=== PATIENT | male | born 1945 | race African-American/Black ===

== ENCOUNTER 2019-11-27 11:05 | Inpatient (IN) ==
[2019-11-27 16:17] LABS: BASO# 0.03 X1000 (0.0-0.2); BASO% 0.4 % (0.0-0.8); EOS# 0.83 X1000 (0.0-0.7); EOS% 11.1 % (0.0-10.0); HEMATOCRIT 32.8 % (42.0-52.0); HEMOGLOBIN 10.1 g/dL (14.0-18.0); IMM GRAN# 0.06 X1000 (0.0-0.04); IMM GRAN% 0.8 % (0.0-0.5); LYMPH% 22.6 % (20.5-51.1); MCHC 30.8 g/dL (33-37); MCV 78.1 FL (81-99); MONO# 0.56 X1000 (0.11-0.59); MONO% 7.5 % (1.7-9.3); MPV 7.9 FL (7.4-10.4); NEUT# 4.33 X1000 (1.4-6.5); NEUT% 57.6 % (42.2-75.2); PLT 279 X1000 (130-400); RDW 17.1 % (11.5-14.5); WBC 7.51 X1000 (4.8-10.8)
--- NOTE | 2019-11-27 16:17 | Diag Imaging Result Doc PS360 ---
EXAM: CHEST-2 VIEWS HISTORY: LE edema TECHNIQUE: Two views COMPARISON: None. FINDINGS: The lungs are well expanded. The heart is not enlarged. The vessels are not distended. There are no infiltrates. No pleural effusions. IMPRESSION: No pulmonary edema Electronically signed by Ankit Howard 11/27/2019 4:15 PM
--- NOTE | 2019-11-27 16:27 | EKG Report ---
Test Performed on : 11/27/2019 4:03:29 PM Test Reason : CP Blood Pressure : / mmHG Vent. Rate : 081 BPM Atrial Rate : 288 BPM P-R Int : 000 ms QRS Dur : 070 ms QT Int : 392 ms P-R-T Axes : 000 011 041 degrees QTc Int : 455 ms Atrial fibrillation. with premature ventricular or aberrantly conducted complexes. Nonspecific ST and T wave abnormality Abnormal ECG No previous ECGs available Unconfirmed Result
[2019-11-27 16:50] LABS: AGAP 13; ALB/GLOB RATIO 0.5; ALBUMIN 2.7 g/dL (3.5-5.0); ALKALINE PHOSPHATASE 74 U/L (32-122); BUN 19 mg/dL (8-22); CALCIUM 8.7 mg/dL (8.8-10.2); CHLORIDE 98 mmol/L (98-107); COSMO 270; CREATININE 0.9 mg/dL (0.7-1.2); ESTIMATED GFR > 60; GLUCOSE 93 mg/dL (70-104); GOT 24 U/L (10-34); GPT 13 U/L (10-44); MAGNESIUM 2.1 mg/dL (1.5-2.7); POTASSIUM 4.6 mmol/L (3.5-5.1); SODIUM 134 mmol/L (136-145); TCO2 23 mmol/L (25-35); TOTAL BILIRUBIN 0.23 mg/dL (0.20-1.00); TOTAL PROTEIN 8.5 g/dL (6.3-8.3)
[2019-11-27 17:20] LABS: CK INDEX 0.2 (0.0-2.5)
[2019-11-27 17:23] LABS: URINE SOURCE CLEAN CATCH
[2019-11-27 17:33] LABS: BILIRUBIN URINE NEGATIVE (NEGATIVE); BLOOD URINE NEGATIVE (NEGATIVE); COLOR YELLOW; GLUCOSE URINE NEGATIVE (NEGATIVE); KETONE URINE NEGATIVE (NEGATIVE); LEUKOCYTES URINE NEGATIVE (NEGATIVE); NITRITE URINE NEGATIVE (NEGATIVE); PROTEIN URINE TRACE mg/dL (NEGATIVE); TURBIDITY URINE CLEAR (CLEAR); UROBILINOGEN URINE NORMAL (NORMAL)
[2019-11-27 17:34] LABS: UR EPITHELIAL CELLS <10 /HPF (<10); URINE BACTERIA NEGATIVE /HPF; URINE RBC <10 /HPF (<10); URINE WBC <10 /HPF (<10)
--- NOTE | 2019-11-27 18:29 | PROVIDER DOCUMENTATION ---
This chart was entered by Jo Valladares Scribe, acting as scribe for Trish Blackmon MD. HPI-General Adult - General Chief Complaint: Fall Stated Complaint: FALL Time Seen by Provider: 11/27/19 14:03 Source: patient Allergies/Adverse Reactions: Patient Allergies Allergy/AdvReac Type Severity Reaction Status Date / Time Penicillins Allergy Severe RASH Verified 11/27/19 16:47 Sulfa (Sulfonamide Allergy Severe RASH Verified 11/27/19 16:46 Antibiotics) Home Medications: Home Medication List Medication Instructions Recorded Confirmed Last Taken Type Cholecalciferol (Vitamin D3) 50,000 unit PO Q7D 11/27/19 11/27/19 11/26/19 History [Replesta] Ferrous Gluconate 324 mg PO DAILY 11/27/19 11/27/19 Unknown History Furosemide 40 mg PO QAM 11/27/19 11/27/19 Unknown History Potassium Chloride 10 meq PO QPM 11/27/19 11/27/19 Unknown History Vit C/Ascorb Sod/Multivit-Min 500 mg PO QPM 11/27/19 11/27/19 Unknown History [Emergen-C 500 mg Chewable Tab] - History of Present Illness -Gen Adult Nature of Presenting Problems: Patient is a 74 year old male who presents with weakness. Family states patient had a fall 1 week ago. Patient denies head injury with fall. Patient reports he slipped out of his chair which caused his fall. History of lymphedema which is followed by the wound clinic in [place]. Location of Pain/Injury: reports: none Quality of Pain: reports: none Severity: reports: mild Onset/Duration: reports: gradual Timing: reports: still present Context/Activities at Onset: reports: light activity Associated Symptoms: reports: weakness Similar Symptoms Previously?: Yes Recently seen or treated by another doctor?: Yes Review of Systems - Adult - REVIEW OF SYSTEMS - ADULT Constitutional: reports: no symptoms reported Eyes: reports: no symptoms reported Ears, Nose, Mouth & Throat: reports: no symptoms reported Cardiovascular: reports: no symptoms reported Respiratory: reports: no symptoms reported Gastrointestinal: reports: no symptoms reported Genitourinary: reports: no symptoms reported Musculoskeletal: reports: see HPI, muscle weakness Integumentary: reports: no symptoms reported Neurological: reports: no symptoms reported Psychiatric: reports: no symptoms reported Endocrine: reports: no symptoms reported Hematologic/Lymphatic: reports: no symptoms reported Allergic/Immunologic: reports: no symptoms reported All Other Systems: Reviewed and Negative Past History - Adult - PAST MEDICAL HISTORY-ADULT Review of Records: reports: Old Records Reviewed, Nursing Assessment Review, Medications Reviewed, Social history reviewed & non-contributory. Major Childhood Illnesses: reports: denies history Cardiovascular: reports: denies history Respiratory: reports: denies history Gastrointestinal: reports: denies history Obstetrical/Gynecological: reports: denies history Genitourinary: reports: denies history Musculoskeletal: reports: denies history Neurological: reports: denies history Psychiatric: reports: denies history Endocrine/Immune: reports: anemia, thyroid disorder Other Conditions: reports: denies history - PRIOR SURGERIES/PROCEDURES Surgical/Procedure History: reports: reviewed, not pertinent - IMMUNIZATION STATUS Childhood Immunizations: See Nurse Assessment Flu Vaccine: See Nurse Assessment - FAMILY HISTORY Family History: reviewed, not pertinent - SOCIAL HISTORY Smoking: denies Substance Use: denies Living Situation: family Physical Exam-General - PHYSICAL EXAM-ADULT Initial Vital Signs Reviewed: Yes - CONSTITUTIONAL General Appearance: alert, no apparent distress. negative: lethargic - HEAD, EARS, NOSE, MOUTH & THROAT HENMT: normocephalic/atraumatic, moist mucous membranes - NECK Neck: non-tender, other (well healed midline scar). negative: limited range of motion - RESPIRATORY Respiratory: chest non-tender, lungs clear, normal breath sounds. negative: crackles - CARDIOVASCULAR Cardiovascular: regular rate, rhythm. negative: tachycardia, systolic murmur - GASTROINTESTINAL (ABDOMEN) Abdominal Exam: normal bowel sounds, non tender, soft. negative: rigid - MUSCULOSKELETAL Extremity: other (bandages present to bilateral lower extremities.) - SKIN Integumentary: normal color, normal turgor, other (malodorous LE with bandages. bandages appear to be clean and dry. wound on leg covered with bandage. (this is new wound from fall 1 week ago. Extreme lymphedema to LE b/l). negative: diaphoresis - NEUROLOGIC Neurologic: grossly normal. negative: aphasia, facial droop - PSYCHIATRIC Psych/Mental Status: normal mood/affect, normal thought content, normal thought process, oriented x 3. negative: anxious Progress - PLAN OF CARE/RESULTS Progress/Plan/Lab Results: Vital Signs - 8 hr 11/27/19 11:22 Temperature 99.0 F Pulse Rate 77 Respiratory Rate 16 Blood Pressure 108/68 O2 Sat by Pulse Oximetry 98 Orders Category Date Time Status Nursing- Obtain EKG ONCE Care 11/27/19 14:27 Active CHEST-2 VIEWS [RAD] Stat Exams 11/27/19 14:27 Ordered CBC WITH ELECTRONIC DIFF [HEME] Stat Lab 11/27/19 14:27 Uncollected CK PROFILE [SP CHEM] Stat Lab 11/27/19 14:27 Ordered COMPREHENSIVE METABOLIC PANEL [CHEM] Stat Lab 11/27/19 14:27 Uncollected MAGNESIUM [CHEM] Stat Lab 11/27/19 14:27 Uncollected TROPONIN T HIGH SENSITIVITY Stat Lab 11/27/19 14:27 Uncollected TSH Stat Lab 11/27/19 14:27 Uncollected URINALYSIS W/POSS RFLX CULT [URINALYSIS] Stat Lab 11/27/19 14:27 Uncollected EKG [EKG] Stat Ther 11/27/19 14:27 Ordered Result Diagrams: 11/27/19 15:49 11/27/19 15:49 - EKG 1 Time of EKG reading by physician:: 16:03 EKG Read and Signed by:: Trish Blackmon EKG Interpretation (*Must complete 3 of following elements*): Abnormal Rate: 81 Rhythm: a fib [place]: normal QRS: normal ST Wave: non-specific ST changes (flattened t waves) Prior EKG Comparison: no prior EKG - XRAY 1 XRAY Study: Chest Impression: See EMR Report ( EXAM: CHEST-2 VIEWS HISTORY: LE edema TECHNIQUE: Two views COMPARISON: None. FINDINGS: The lungs are well expanded. The heart is not enlarged. The vessels are not distended. There are no infiltrates. No pleural effusions. IMPRESSION: No pulmonary edema Elect ronically signed by Ankit Howard 11/27/2019 4:15 PM 11/27/19 1615 Interpreting Physician: Ankit Howard MD Dictated Date/Time: 11/27/19 1614 cc: Trish Blackmon MD; None,PCP) - CONSULTS/PCP/HOSPITALIST Notification #1 *Consult/PCP/Hospitalist*: Spoke with Haley Time Discussed: 18:00 Consult Disposition: Will see in ED Departure - Departure Date of Disposition Decision: 11/27/19 Time of Disposition Decision: 20:09 DIAGNOSIS: Atrial fibrillation, New onset a-fib, Chronic acquired lymphedema Disposition: ADMITTED INPATIENT 09 Certified Medical Emergency: Emergent Condition: Stable Referrals and Follow-Ups: None,PCP [Primary Care Provider] - - Critical Care Note This patient required my direct & personal management of CC.: No Attestation - Physician/ EMILY Attestation The physician spent face to face time with patient:: Yes Advanced Practice Provider documentation review:: Supervising physician onsite and consulted in the evaluation and care of this patient. The physician did have a face to face encounter with the patient. This chart was documented by the indicated scribe, (Jo Valladares Scribe) and accurately reflects the services I performed and decisions made by me, Trish Blackmon MD, as attested by the provider's signature.
[2019-11-27 22:02] LABS: INR 0.94; PROTIME 12.6 Seconds (11.0-16.0); PTT 36.3 Seconds (22.3-41.8)
--- NOTE | 2019-11-27 22:13 | Diag Imaging Result Doc PS360 ---
EXAM: XRAY PELVIS W/HIP 2-3VW RT HISTORY: Fall,right hip pain TECHNIQUE: Two views COMPARISON: None. FINDINGS: No fracture. No dislocation. IMPRESSION: No acute bony injury. Electronically signed by Ankit Howard 11/27/2019 10:11 PM
[2019-11-27 22:33] LABS: CK INDEX 0.2 (0.0-2.5); CK-MB 1.05 ng/mL (0.0-5.0)
[2019-11-27] MEDS ORDERED: ZOFRAN IV PRN (22:35)
[2019-11-27] MEDS ORDERED: TYLENOL PO PRN (22:35)
[2019-11-27] MEDS ORDERED: NS 1,000 ML IV SCH (22:45)
--- NOTE | 2019-11-27 23:21 | EKG Report ---
Test Performed on : 11/27/2019 9:37:38 PM Test Reason : New Onset A-Fib,repeat EKG Blood Pressure : / mmHG Vent. Rate : 075 BPM Atrial Rate : 277 BPM P-R Int : 000 ms QRS Dur : 074 ms QT Int : 346 ms P-R-T Axes : 000 199 179 degrees QTc Int : 386 ms Undetermined rhythm Right superior axis deviation ST & T wave abnormality, consider inferior ischemia Abnormal ECG When compared with ECG of 27-NOV-2019 16:03, (Unconfirmed) Current undetermined rhythm precludes rhythm comparison, needs review QRS axis shifted left T wave inversion now evident in Inferior leads QT has shortened Unconfirmed Result
[2019-11-28 00:04] LABS: CK INDEX 0.2 (0.0-2.5); CK-MB 1.14 ng/mL (0.0-5.0)
--- NOTE | 2019-11-28 03:48 | HISTORY AND PHYSICAL ---
PRIMARY CARE PROVIDER: Dr. Duque at the [facility] in [place]. CHIEF COMPLAINT: Fall. HISTORY OF PRESENT ILLNESS: Mr. Coelho is a 74-year-old male who [facility] with complaints of a fall. The patient as well as his daughter and niece who help take care of him were present and did help with assistance with the history of present illness and past medical history. They stated that the patient did have a fall that happened 1 week ago on . Unfortunately, the patient did lay on the floor for 2 days, until Sunday afternoon, when he was found by some syn[employer] members that had gone by to check on him. The patient denied hitting his head. He denied any loss of consciousness. He really was only complaining of some right hip pain, which he described as more stiffness and soreness. Where he laid on that side for quite some time, he does have a large area of breakdown on his hip that was approximately 6 to 7 inches in length and about 3 inches in width. Though the area did not appear to be infected, it did appear to be very abraded. The family, fortunately, had been keeping this clean and dressed. The patient states this fall did occur during a transfer, he was standing with his walker and was trying to sit down in his wheelchair and he states he did not get his bottom all the way in the wheelchair and the wheelchair slipped out from under him as well as the walker did in the front, causing him to land on the ground. Unfortunately, he was too weak to be able to get himself up out of the floor to reach for a phone or anything to obtain help with. His daughter and niece who were at bedside, have stated that he has had 2 or 3 falls over the last month or so, with the last one being last . That he does seem to be having some worsening generalized weakness. He does from, what I understand, have a nurse that comes out 3 times a week and does do dressing changes on his bilateral lower extremities as well as either she is doing some physical therapy exercises with him or he does have physical therapy that comes out, but they did mention that he has been having physical therapy at home. The patient does live by himself, though as previously mentioned, has home health and family that comes by, checks on him and helps take care of him. He has a history of having bilateral lower extremity lymphedema ongoing now for 15 years, he states he has had problems with this. He has recently had weeping of his legs and his niece stated that he had some wounds on bilateral heels, though to her knowledge, these have been looking better. The patient does have what appears to be possibly a Unna boot type dressing from just distally from his knees down to proximal, his toes bilaterally. The patient states that during the time he was lying in the floor for 2 days, he did not eat or drink anything. Though at this time, other than some soreness in his right hip, he denies any other symptoms or complaints at this time. He denies any headache, dizziness, chest pain, shortness of breath, abdominal pain, nausea, vomiting, or diarrhea. He reports that his last bowel movement was yesterday. His daughter did note that he did have some blood streaks noted in his stool yesterday. They do not know a for sure history of him having any history of hemorrhoids, though she stated that this has happened in the past a couple of times. Though other than this, they have not noted any other hematochezia or melena. The patient does have previously mentioned swelling noted to his bilateral lower extremities. He does have Unna boot type dressing noted to bilateral lower extremities as well. He does have good capillary refill, less than 3 in the toes on both bilateral feet. Upon evaluation in the ER, he is slightly anemic, though the patient does report a history of this in the past. CK was slightly elevated at 613 with the index was 0.2, CK-MB was 1. Troponin T high sensitivity was 12. Urinalysis did not show any signs of infection. Though upon performing routine EKG, given his reported weakness, I did note he had atrial fibrillation with premature ventricular or aberrantly conducted complexes at a rate of 81, with a QTc of 455. The patient has no known previous history of this. As previously mentioned, he denies any chest pain or palpitations. Chest x-ray showed no acute abnormalities. We did perform a x-ray pelvis with right hip views which showed no acute bony injury. At this time, the patient was placed inpatient admission for evaluation of his new onset atrial fibrillation, weakness and fall. REVIEW OF SYSTEMS: A 14-point review of systems was conducted with the patient and all were negative, except for pertinent positives mentioned above HPI. PAST MEDICAL HISTORY: 1. Hypothyroidism. 2. Bilateral lower extremity lymphedema for which the patient states has been ongoing for 15 years or more. 3. History of anemia. 4. The patient did mention a possible questionable history of a blood clot in his left leg, though he reported this was a superficial blood clot, though I did find in the historical patient data on a previous history and physical from 2004 that there was mention of a history of DVT in the left leg. 5. 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 PAST SURGICAL HISTORY: 1. Umbilical hernia repair in 1969. 2. Neck surgery for which the patient states he has 2 plates in his neck. SOCIAL HISTORY: The patient has no known history of tobacco, alcohol or illicit drug use. He does live alone, though does have family members that come by and check on him. He also does have home health that comes out reportedly 3 times a week. The patient does require assistance of a wheelchair and does use a walker when transferring from chair to his wheelchair. FAMILY MEDICAL HISTORY: Positive for his mother having a questionable history of a stroke. His father had COPD and in his 90s. His siblings, he does have a brother who had a history of lung cancer which was due to environmental exposure. He had another brother who had a history of gastric cancer. He did have 1 sister who had a history of lung cancer as well. ALLERGIES: Patient has allergies to penicillin and sulfa, though these are the only 2 that he was certain of. We are going to contact the [facility] in [place] to obtain an up-to-date allergy list. HOME MEDICATIONS: We are waiting for his home medication list to be updated and verified. We have made a request to obtain a home medication list from the [facility] in [place]. The patient could verbally report that he takes vitamin D3 and iron supplement, Lasix 40 mg daily, potassium chloride 10 mEq p.o. daily, vitamin C supplement, as well as a levothyroxine tablet, though we are trying to verify the dose on them as well. DIAGNOSTIC DATA/LABORATORY RESULTS: White blood cell count is 7,510, hemoglobin 10.1, hematocrit 32.8, platelet count is 279,000. PT 12.6, INR 0.94, PTT is 36.3. Sodium 134, potassium 4.6, chloride 98, serum bicarb is 23, BUN 19, creatinine 0.9, GFR is greater than 60. Glucose 93, calcium 8.7, magnesium 2.1. Liver function tests are within normal limits. CK initial was 613 with a repeat of 538, CK index was 0.2, CK-MB was 1. Troponin T high sensitivity was 12, repeat was 12 as well. Urinalysis obtained via clean catch, was only positive for trace protein. It was negative for glucose, ketones, blood, nitrites, leukocytes, white blood cells, or bacteria. EKG showed atrial fibrillation with premature ventricular or aberrantly conducted complexes, nonspecific ST and T-wave abnormality at a rate of 81, with a QTc of 455. We are awaiting a repeat EKG at this time. There was quite a bit of artifact noted on this 1. Chest x-ray showed the lungs were well expanded, the heart was not enlarged, the vessels were not distended, there were no infiltrates, no pleural effusions, and no pulmonary edema. This is per Radiology. X-ray pelvis with right hip views showed no acute bony injury. This is per Radiology as well. PHYSICAL EXAMINATION: VITAL SIGNS: Temperature 98.4 degrees, heart rate 81, respirations 14, blood pressure is 92/56 with a MAP of 64, oxygen saturation is 100% on room air. GENERAL: Mr. Coelho is a pleasant, 74-year-old male who is resting in the ER stretcher. He was in no acute distress. He was awake, alert and able to answer questions appropriately. HEENT: Head is atraumatic, normocephalic. Pupils are equal, round, reactive to light, were 3 mm bilaterally and brisk. Oral mucosa was moist. Oropharynx was clear. NECK: Supple. Trachea midline. CARDIOVASCULAR: Patient has S1, S2 present. No murmurs, gallops, rubs appreciated with a regular rate that was maintaining in the 70s and 80s with irregularly irregular rhythm. PULMONARY: Patient has symmetrical chest expansion bilaterally. Lung sounds are clear to auscultation in bilateral full anguiano. ABDOMEN: Soft, nondistended, nontender. Bowel sounds are present in all 4 quadrants, were slightly hypoactive. EXTREMITIES: No cyanosis noted. The patient does have swelling noted to bilateral lower extremities. This extends from mainly his knees down. The patient states he has a diagnosis of lymphedema, he has had problems with this for 15 years and, at this time, it has not worsened. He does have an Unna boot type dressing noted from just below his bilateral knees down to just above his bilateral toes. Radial pulses were 2+ bilaterally, though due to his dressings pedal pulses were unable to be palpated, though he did have capillary refill that was less than 3 in bilateral toes of both feet distal to his dressing. The patient is able to move all extremities, though he does have generalized weakness noted bilaterally. He does have some contracture of his right arm and drawing of his right hand, but he states this has been present for many years, since he had his neck surgery. INTEGUMENTARY: The patient's skin is pink, warm, and dry. He does have the dressings noted to bilateral lower extremities as mentioned above. He also did have a large abrasion abraded area noted to his right hip. This was approximately 3 inches in width by 6 to 7 inches in length. Though it does not appear to be infected, there was no drainage noted. There was no active bleeding noted. NEUROLOGICAL: Patient is alert and oriented to person, place, time, and situation. He was able to answer questions and follow commands appropriately. He is able to move all extremities. As previously mentioned, he does have some contracture noted to his right arm and drawing of his right hand, this is not of new onset. He does have some generalized weakness noted, though this does not appear to be unilateral. ASSESSMENT AND PLAN: 1. New onset atrial fibrillation. We will continue to complete a series of cardiac enzymes, though at this time, the patient is denying any symptoms. He denied any chest pain, shortness of breath, or palpitations. We will perform an echocardiogram in the morning as well. We have placed a consult with Dr. Lemus with Cardiology. We will await their evaluation and further recommendations for management. The patient's electrolytes, except for his sodium and calcium being slightly low, were all within normal limits. His heart rate is controlled in the 70s and 80s, at this time. He will be placed on continuous cardiac telemetry. We will continue to monitor this closely. He will have frequent vital signs q.4 hours. 2. Generalized weakness. His family states that he has had this weakness for a while but it does seem to be getting worse instead of improving. This may be contributing to his reported falls that he has had over the last month. He does have a history of anemia, though his hemoglobin and hematocrit are a little low at 10.1 and 32.8. We will do an anemia profile in the morning. We will wait till cardiology evaluates him, though after this he will need a physical therapy evaluation as well as need for possible rehab as well. 3. Falls. The patient and the patient's family report that he has fallen 2 to 3 times over the last month, with the last one being last , for which he did lay on the floor for 2 days until he was found on Sunday. He was complaining of some right hip stiffness and soreness, though right pelvis and hip x-ray was negative for any acute bony abnormalities. He does have a wound noted on the side. We have ordered for wound care of this as well as the wound care nurse consult. Likely, his increased weakness is contributing to his falls. We do plan to get physical therapy evaluation and patient may possibly need rehab upon discharge. 4. Bilateral lower extremity lymphedema and wounds. The patient does take Lasix for this daily, though given his recent fall and slightly elevated CK levels, I am going to provide him a 1 L normal saline, gentle infusion overnight and then we will recheck his chemistries in the morning. We have placed a wound care nurse consult as well for continued treatment of his lymphedema and wounds. The patient does, at this time, have Unna boot dressings in place. His capillary refill distal to these dressings in his bilateral toes was less than 3. 5. Anemia. The patient does have a history of this and reportedly takes an iron supplement. We are going to place an order for anemia profile. We are awaiting his most recent home medication list from the [facility] in [place]. We will await these results and continue to follow. 6. Hypothyroidism. The patient reports he does take Synthroid, though we are awaiting his home medication list to be verified. Once done so, we can continue his regularly prescribed dose of Synthroid. He has been placed on the medical floor with telemetry. We will do strict intake and output, incentive spirometry, frequent vital signs. We have also ordered for the patient to be turned q.2 hours. He will be on a heart healthy diet. We will repeat a CBC, BMP, and anemia profile and complete a series of cardiac enzymes. We did place a executive secretary social welfare and case management consult due to his need for possible rehab upon discharge. We did place a request to obtain most recent home medication list, allergy list, and possibly a history and physical from the [facility] in [place]. We did discuss resuscitation status with the patient. He would like to be a Full Code. Order has been placed for this in computer. Further orders and recommendations pending hospital course, diagnostic studies, and physician evaluation. Dictated by ELIOT Harmon for Manish Rachel MD cc: Manish Rachel MD
--- NOTE | 2019-11-28 07:04 | EKG Report ---
Test Performed on : 11/28/2019 06:52:13 AM Test Reason : Pseudo Atrial Fibrillation Blood Pressure : / mmHG Vent. Rate : 068 BPM Atrial Rate : 068 BPM P-R Int : 146 ms QRS Dur : 076 ms QT Int : 412 ms P-R-T Axes : 073 004 010 degrees QTc Int : 438 ms Sinus rhythm. with fusion complexes Nonspecific ST abnormality Abnormal ECG When compared with ECG of 27-NOV-2019 21:37, (Unconfirmed) Previous ECG has undetermined rhythm, needs review QRS axis shifted right Confirmed by James Sofia MD ([id number]) on 11/28/2019 4:35:43 PM
[2019-11-28 08:05] LABS: BASO# 0.02 X1000 (0.0-0.2); BASO% 0.3 % (0.0-0.8); EOS# 0.56 X1000 (0.0-0.7); EOS% 7.5 % (0.0-10.0); HEMATOCRIT 31.2 % (42.0-52.0); HEMOGLOBIN 9.4 g/dL (14.0-18.0); IMM GRAN# 0.04 X1000 (0.0-0.04); IMM GRAN% 0.5 % (0.0-0.5); LYMPH# 1.28 X1000 (1.2-3.4); LYMPH% 17.2 % (20.5-51.1); MCH 23.6 PG (27-31); MCHC 30.1 g/dL (33-37); MCV 78.2 FL (81-99); MONO# 0.51 X1000 (0.11-0.59); MONO% 6.9 % (1.7-9.3); MPV 7.6 FL (7.4-10.4); NEUT# 5.02 X1000 (1.4-6.5); NEUT% 67.6 % (42.2-75.2); PLT 256 X1000 (130-400); RBC 3.99 XMIL (4.7-6.1); RDW 16.9 % (11.5-14.5); WBC 7.43 X1000 (4.8-10.8)
[2019-11-28 08:17] LABS: AGAP 9; BUN 15 mg/dL (8-22); CALCIUM 8.2 mg/dL (8.8-10.2); CHLORIDE 101 mmol/L (98-107); COSMO 273; CREATININE 0.7 mg/dL (0.7-1.2); ESTIMATED GFR > 60; GLUCOSE 95 mg/dL (70-104); POTASSIUM 4.4 mmol/L (3.5-5.1); SODIUM 136 mmol/L (136-145); TCO2 26 mmol/L (25-35)
[2019-11-28 08:20] LABS: IRON SATURATION 13 %; TIBC 167 ug/dL; TOTAL IRON 21 ug/dL (53-167); UNBOUND IRON 146 ug/dL (112-346)
[2019-11-28 08:38] LABS: FERRITIN 135 ng/mL (30-400)
[2019-11-28] MEDS ORDERED: VENOFER 500 MG in NS 250 ML IV ONE (10:00)
--- NOTE | 2019-11-28 10:39 | PROGRESS NOTE ---
DATE: 11/28/2019 SUBJECTIVE: Patient reports feeling fine. He is alert, oriented x3. Complains of mild back pain, but no other complaints noted. OBJECTIVE: Vital Signs: Temperature 97.5 degrees, heart rate 69, respiratory rate 16, blood pressure 102/55, O2 saturation 100% on room air. General Examination: This is a chronically ill- appearing, 74-year-old male, lying in bed in no acute distress. Cardiovascular exam: S1, S2 heard. No murmurs, gallops, or rubs. Regular rate and rhythm. Respiratory exam: Clear bilaterally to auscultation. No work of breathing or using accessory muscles. Abdomen: Soft, nontender to palpation. Bowel sounds present. No organomegaly. Extremities: The patient has both lower extremities covered by dressing. The patient has lymphedema. Both lower extremities are very swollen. Peripheral pulses in both legs. Neurological exam: Patient alert, oriented x3. Moves 4 extremities. ASSESSMENT AND PLAN: 1. New onset atrial fibrillation. Apparently this patient yesterday night had an episode of atrial fibrillation, but has some pain properly documented with electrocardiograms. The last electrocardiogram shows sinus rhythm with some premature ventricular complexes. At this time, we will await consultation from Cardiology. I personally think if he developed any paroxysmal atrial fibrillation, it was probably because of dehydration because he had been on the floor for a couple days. 2. General weakness. The patient has been having weakness for awhile, and that was getting worse to the point that he fell and stayed on the floor for a couple of days. Physical therapy has been consulted, along with occupational therapy as well. We may most likely need to send this patient to rehabilitation. 3. Bilateral lower extremity lymphedema. We will restart Lasix for this patient. Wound Care has been consulted. 4. Anemia of chronic disease. Iron is very low. I do not know if this patient is on iron pills or not. We are going to provide 1 dose of Venofer; we will go from there. 5. Hypothyroidism. Thyroid stimulating hormone is slightly elevated. I do not know whether these were doses of Synthroid. Once we have this medication confirmed, we will restart it. 6. Disposition: We will continue to monitor this patient closely. cc: Archie Selby MD
[2019-11-28] MEDS: LASIX PO SCH (12:59)
[2019-11-28] MEDS: FERGON PO SCH (12:59)
[2019-11-28] MEDS: THERA M PLUS PO SCH (20:50)
[2019-11-28] MEDS: KLOR-CON PO SCH (20:50)
--- NOTE | 2019-11-28 22:08 | GENERAL SURGERY CONSULTATION ---
DATE: 11/28/2019 REASON FOR CONSULTATION: Right hip wound. HISTORY OF PRESENT ILLNESS: This is a 74-year-old male who has known lower extremity weakness and decreased mobility. He fell at home a week ago and lay on the floor for approximately 2 days. He does report scooting around on his hip on the floor until he was found by friends or family 2 days later. He was brought to the hospital for further evaluation. He was found to have a new onset of atrial fibrillation. He is extremely weak and has a large wound on his right hip. He denies pain, fever, or other systemic complaints. PAST MEDICAL HISTORY: Bilateral lower extremity lymphedema, anemia, hypothyroidism, spinal stenosis. PAST SURGICAL HISTORY: Umbilical hernia repair and neck surgery. SOCIAL HISTORY: Negative for tobacco, alcohol or illicit drug use. He does use a walker and wheelchair. FAMILY HISTORY: Positive for COPD, stroke, stomach cancer, lung cancer. ALLERGIES: Penicillin, sulfa. CURRENT MEDICATIONS: Tylenol, vitamin D, ferrous gluconate, Lasix, multivitamin, Zofran, Klor- Con. REVIEW OF SYSTEMS: Ten systems reviewed and negative except as noted above. PHYSICAL EXAMINATION: Vital Signs: Temperature 97.9, pulse 80, respirations 16, blood pressure 99/43, O2 saturation 100%. General: A 74-year-old male who is chronically ill-appearing, but in no acute distress. CV: Regular rate and rhythm. Respiratory: Bilateral breath sounds. No work of breathing. GI: Soft, nontender, nondistended. No organomegaly or mass. Musculoskeletal: Moves his extremities weakly but equally. Skin: The right lateral thigh has a large eschar and denuded skin, rectangular in shape, a little smaller than my hand. No gross pus. There is some slight odor to it. I suspect it is probably stage III. LABORATORY: White blood cell count 7, hemoglobin 9.4, hematocrit 31, platelet count 2560. Electrolytes reviewed and unremarkable. ASSESSMENT/PLAN: Right thigh decubitus ulcer secondary to fall and immobility. I think we can treat this conservatively for now with Triad or Santyl. We may eventually debride it sharply in the operating room, but I would like to treat conservatively for now. He is also being treated for new-onset atrial fibrillation and lower extremity lymphedema. cc: Maximo Arellano MD
--- NOTE | 2019-11-29 09:45 | EKG Report ---
Test Performed on : 11/29/2019 08:53:38 AM Test Reason : NEW ONSET AFIB Blood Pressure : / mmHG Vent. Rate : 072 BPM Atrial Rate : 072 BPM P-R Int : 144 ms QRS Dur : 084 ms QT Int : 410 ms P-R-T Axes : 034 -14 000 degrees QTc Int : 448 ms Sinus rhythm. with premature atrial complexes. Otherwise normal ECG When compared with ECG of 28-NOV-2019 06:52, fusion complexes are no longer present premature atrial complexes. are now present Confirmed by James Sofia MD ([id number]) on 12/01/2019 4:13:58 PM
[2019-11-29] MEDS: FERGON PO SCH (10:28)
[2019-11-29] MEDS: LASIX PO SCH (10:28)
--- NOTE | 2019-11-29 14:15 | ECHO REPORT ---
ORDER DATE: 11/28/2019 2D ECHOCARDIOGRAM: ECHOCARDIOGRAPHIC MEASUREMENTS: 1. Interventricular septum 1.0. 2. Left ventricular posterior wall 1.0. 3. Diastolic diameter 4.2. 4. Aorta 3.2 cm. SUMMARY: 1. Aortic valve leaflets were trileaflet. 2. The left coronary cusp was calcified. 3. Pulmonic valve was normal. 4. Technically suboptimal study. Poor acoustic window. 5. Mitral valve was normal. 6. Tricuspid valve was normal. 7. There is mild mitral regurgitation. 8. Peak velocity across the aortic valve is less than 2 m/sec. 9. There is no aortic stenosis or regurgitation. 10. Mild tricuspid regurgitation. 11. Peak velocity across the tricuspid valve was less than 2 m/sec. 12. Optison was used to assess left ventricular systolic function. 13. Normal left ventricular cavity size, mild left ventricular hypertrophy. 14. Estimated ejection fraction of 65 to 70 percent. 15. There is no pericardial effusion. cc: Jaime Esparza MD
--- NOTE | 2019-11-29 14:42 | PROGRESS NOTE ---
DATE: 11/29/2019 SUBJECTIVE: Patient reports feeling fine. No complaints at this time. No palpitations or chest pain. No shortness of breath. OBJECTIVE: Vital Signs: Temperature 98.1 degrees, heart rate 72, respiratory 21, blood pressure 92/59, O2 saturation 96% on room air. General Examination: A chronically ill-looking, 74-year- old male, lying in bed, in no acute distress. Cardiovascular: S1, S2 heard. No murmurs, gallops, or rubs. Regular rate and rhythm. Respiratory: Clear bilaterally to auscultation. No work of breathing or using accessory muscles. Abdomen: Soft, nontender to palpation. Bowel sounds present. No organomegaly. Extremities: Patient has both lower extremities covered by dressing with foul smelling odor. The patient has lymphedema and the patient has on the lateral thigh a large eschar, no drainage coming out. Neurological: Patient alert and oriented x3. Moves 4 extremities. LABORATORY DATA: None. ASSESSMENT AND PLAN: 1. New onset atrial fibrillation. I am not quite sure this is paroxysmal atrial fibrillation. In any case, upon my examination he looks like to be in sinus rhythm. We are going to do an EKG today. Because of his recurrent falls, he is not a candidate for any anticoagulation at this time. His heart rate actually has been okay, as we mentioned before he is in sinus rhythm at this time. We will continue to monitor this patient closely. 2. Bilateral lower extremity lymphedema/right thigh decubitus ulcer. The patient has been evaluated by Dr. Arellano regarding this right thigh decubitus ulcer and he recommends medical treatment only. He may need to have surgical debridement down the road, but at this point, we will continue following recommendations from him. 3. Anemia of chronic disease. The patient has received 1 dose of Venofer 500 mg IV. 4. Hypothyroidism. Aware. 5. Disposition. The patient has had recurrent falls. With all those wounds we will continue wound care in the hospital. On Sunday we will see what is the result of the evaluation from PT-OT, and depending upon that we might need to send this patient to rehab facility. cc: Archie Selby MD
[2019-11-29] MEDS: KLOR-CON PO SCH ×2 (19:34→22:49)
[2019-11-29] MEDS: THERA M PLUS PO SCH ×2 (19:34→22:50)
[2019-11-30 08:11] LABS: BASO# 0.02 X1000 (0.0-0.2); BASO% 0.2 % (0.0-0.8); EOS# 0.54 X1000 (0.0-0.7); EOS% 4.9 % (0.0-10.0); IMM GRAN# 0.05 X1000 (0.0-0.04); IMM GRAN% 0.5 % (0.0-0.5); LYMPH# 1.79 X1000 (1.2-3.4); LYMPH% 16.1 % (20.5-51.1); MCH 23.4 PG (27-31); MCV 77.9 FL (81-99); MONO# 0.83 X1000 (0.11-0.59); MONO% 7.5 % (1.7-9.3); MPV 7.8 FL (7.4-10.4); NEUT# 7.87 X1000 (1.4-6.5); NEUT% 70.8 % (42.2-75.2); PLT 259 X1000 (130-400); RBC 3.85 XMIL (4.7-6.1); RDW 17.1 % (11.5-14.5)
--- NOTE | 2019-11-30 08:42 | PROGRESS NOTE ---
DATE: 11/30/2019 SUBJECTIVE: The patient reports feeling fine. Reports that iron pills are making him constipated. No other complaints at this time. OBJECTIVE: Vital Signs: Temperature 98.8 degrees, heart rate 77, respiratory rate 16, blood pressure 92/51, O2 saturation 98% on room air. General: This is a chronically ill-looking, 74- year-old, male, lying in bed in no acute distress. Cardiovascular: S1, S2 heard. No murmurs, gallops, or rubs. Regular rate and rhythm. Respiratory: Clear bilaterally to auscultation. No work of breathing or using accessory muscles. Abdomen: Soft, nontender to palpation. Bowel sounds present. No organomegaly. Extremities: The patient has lower extremity covered by dressing, with foul-smelling odor. The patient has massive lymphedema. In the right thigh, he has a decubitus ulcer. No drainage coming out. Neurological: The patient is alert and oriented x3. Moves all 4 extremities. LABORATORY DATA: Pending at the time of my dictation. ASSESSMENT AND PLAN: 1. Atrial fibrillation. I do not know if this is paroxysmal atrial fibrillation or not. I have checked initial electrocardiograms that were not taking properly. At this time, the patient persists to be in sinus rhythm. He has some premature atrial contractions. I do not think that this patient needs anticoagulation, and of course, we do not need to provide any medication to this patient for this condition. At this point, I think this condition is resolved. 2. Bilateral lower extremity lymphedema/right thigh decubitus ulcer. I will continue with wound care. Surgery has been consulted, but they think that the patient needs medical treatment only. 3. Anemia of chronic disease. Stable. The patient has received so far, 500 mg of Venofer. Will continue to monitor. 4. Hypothyroidism. Aware. 5. Disposition. I am awaiting evaluation from Physical Therapy/Occupational Therapy. Most likely, this patient may need to be sent to rehab facility. cc: Archie Selby MD
[2019-11-30] MEDS: LASIX PO SCH (08:51)
[2019-11-30] MEDS: COLACE PO SCH ×2 (08:58→23:24)
[2019-11-30 09:07] LABS: AGAP 7; ALBUMIN 1.9 g/dL (3.5-5.0); BUN 12 mg/dL (8-22); CALCIUM 8.2 mg/dL (8.8-10.2); CHLORIDE 102 mmol/L (98-107); COSMO 277; CREATININE 0.7 mg/dL (0.7-1.2); ESTIMATED GFR > 60; GLUCOSE 92 mg/dL (70-104); PHOSPHORUS 3.2 mg/dL (2.7-4.5); POTASSIUM 3.5 mmol/L (3.5-5.1); SODIUM 139 mmol/L (136-145); TCO2 30 mmol/L (25-35)
[2019-11-30] MEDS: KLOR-CON PO SCH (23:24)
[2019-11-30] MEDS: THERA M PLUS PO SCH (23:25)
[2019-12-01] MEDS ORDERED: VANCOMYCIN IV PER PHARMACY MISC SCH (06:45)
[2019-12-01 08:02] LABS: BASO# 0.02 X1000 (0.0-0.2); BASO% 0.2 % (0.0-0.8); EOS# 0.39 X1000 (0.0-0.7); HEMATOCRIT 29.8 % (42.0-52.0); IMM GRAN# 0.04 X1000 (0.0-0.04); IMM GRAN% 0.3 % (0.0-0.5); LYMPH# 1.67 X1000 (1.2-3.4); MCH 23.5 PG (27-31); MCHC 30.2 g/dL (33-37); MCV 77.8 FL (81-99); MONO# 0.97 X1000 (0.11-0.59); MONO% 7.5 % (1.7-9.3); NEUT# 9.76 X1000 (1.4-6.5); PLT 249 X1000 (130-400); RBC 3.83 XMIL (4.7-6.1); RDW 17.2 % (11.5-14.5); WBC 12.85 X1000 (4.8-10.8)
--- NOTE | 2019-12-01 08:13 | PROGRESS NOTE ---
DATE: 12/01/2019 SUBJECTIVE: Patient reports feeling okay. No complaints at this time. OBJECTIVE: Vital Signs: Temperature 100.1 degrees, heart rate 91, respiratory rate 19, blood pressure 99/50, and O2 saturation 94% on room air. General: This is a chronically ill- appearing 74-year-old male lying in bed in no acute distress. Cardiovascular: S1, S2 heard. No murmurs, gallops, or rubs. Regular rate and rhythm. Respiratory: Clear bilaterally to auscultation. No work of breathing or using accessory muscles. Abdomen: Soft. Nontender to palpation. Bowel sounds present. No organomegaly. Extremities: No clubbing, cyanosis, or edema. Peripheral pulses present in both legs. Patient has both lower extremities covered by dressing with foul smelling odor. The patient has massive lymphedema on the right side. There is a decubitus ulcer with no drainage coming out. Neurological: Patient is alert and oriented x3. Moves all 4 extremities. LABORATORY DATA: Pending at time of dictation. Yesterday, the white cell count was elevated at 11.1. ASSESSMENT AND PLAN: 1. Atrial fibrillation resolved. 2. Bilateral lower extremity lymphedema right thigh decubitus ulcer. Those are getting infected. White cell count is getting higher, and the patient started spiking a fever. At this point, we will do wound culture from both lower extremities. We will start vancomycin, Azactam and clindamycin. The patient has been evaluated by Surgery, but no surgical approach is recommended at this time. Wound Care will continue seeing this patient. 3. Anemia of chronic disease. Stable. We will continue to monitor. 4. Hypothyroidism aware. 5. Disposition. We will continue to monitor this patient closely. Also, physical therapy and occupational therapy working with this patient. When this patient is medically stable, he may need to go to rehab facility. cc: Archie Selby MD MTDClara
[2019-12-01] MEDS ORDERED: VANCOMYCIN 2,000 MG in NS 500 ML IV ONE (08:30)
[2019-12-01 08:45] LABS: AGAP 10; ALBUMIN 1.8 g/dL (3.5-5.0); BUN 10 mg/dL (8-22); CALCIUM 7.6 mg/dL (8.8-10.2); CHLORIDE 99 mmol/L (98-107); COSMO 273; CREATININE 0.7 mg/dL (0.7-1.2); ESTIMATED GFR > 60; GLUCOSE 92 mg/dL (70-104); PHOSPHORUS 2.8 mg/dL (2.7-4.5); POTASSIUM 3.7 mmol/L (3.5-5.1); SODIUM 137 mmol/L (136-145); TCO2 28 mmol/L (25-35)
[2019-12-01] MEDS: LASIX PO SCH (10:08)
[2019-12-01] MEDS: COLACE PO SCH ×2 (10:08→21:13)
[2019-12-01] MEDS ORDERED: NS 500 ML ONE (12:14)
[2019-12-01] MEDS: CLINDAMYCIN 600 MG/D5W 600 MG/50 ML IVPB IV SCH ×2 (12:16→21:13)
[2019-12-01] MEDS: AZACTAM 1 GM in NS 50 ML IV SCH ×2 (12:18→22:14)
[2019-12-01] MEDS: KLOR-CON PO SCH (21:13)
[2019-12-01] MEDS: THERA M PLUS PO SCH (21:13)
--- NOTE | 2019-12-01 21:53 | GENERAL SURGERY PROGRESS NOTE ---
DATE: 12/01/2019 SUBJECTIVE: The patient is doing okay. No new complaints. OBJECTIVE: Vital Signs: Afebrile. Vital signs are stable. General: He is awake, alert, and oriented x3. No acute distress. Extremities: The right thigh wound is examined. There is no worsening. He still has full-thickness skin that is denuded. It is red. Minimal necrotic tissue. No gross pus. ASSESSMENT AND PLAN: A 74-year-old male with right thigh decubitus ulcer. I would recommend continued offloading and treating with Triad cream. I would like to see him back in the [facility] within 2 weeks after discharge. cc: Maximo Arellano MD
[2019-12-02] MEDS: CLINDAMYCIN 600 MG/D5W 600 MG/50 ML IVPB IV SCH ×3 (03:55→20:58)
[2019-12-02] MEDS: AZACTAM 1 GM in NS 50 ML IV SCH ×3 (06:00→22:26)
[2019-12-02] MEDS: VANCOMYCIN 1,800 MG in NS 250 ML IV SCH (08:40)
[2019-12-02] MEDS: COLACE PO SCH ×2 (08:42→20:57)
[2019-12-02] MEDS: LASIX PO SCH (08:42)
[2019-12-02 08:45] LABS: BASO# 0.02 X1000 (0.0-0.2); BASO% 0.2 % (0.0-0.8); EOS# 0.19 X1000 (0.0-0.7); EOS% 1.6 % (0.0-10.0); HEMOGLOBIN 8.7 g/dL (14.0-18.0); IMM GRAN# 0.05 X1000 (0.0-0.04); IMM GRAN% 0.4 % (0.0-0.5); LYMPH# 1.42 X1000 (1.2-3.4); LYMPH% 11.7 % (20.5-51.1); MCH 23.5 PG (27-31); MCV 78.2 FL (81-99); MONO# 1.24 X1000 (0.11-0.59); MONO% 10.2 % (1.7-9.3); MPV 8.3 FL (7.4-10.4); NEUT# 9.25 X1000 (1.4-6.5); NEUT% 75.9 % (42.2-75.2); PLT 235 X1000 (130-400); RBC 3.71 XMIL (4.7-6.1); RDW 17.4 % (11.5-14.5); WBC 12.17 X1000 (4.8-10.8)
[2019-12-02] MEDS ORDERED: NS 1,000 ML IV SCH (08:45)
[2019-12-02 09:42] LABS: AGAP 8; BUN 14 mg/dL (8-22); CALCIUM 7.7 mg/dL (8.8-10.2); CHLORIDE 98 mmol/L (98-107); COSMO 273; CREATININE 0.8 mg/dL (0.7-1.2); ESTIMATED GFR > 60; GLUCOSE 103 mg/dL (70-104); PHOSPHORUS 2.8 mg/dL (2.7-4.5); POTASSIUM 3.2 mmol/L (3.5-5.1); SODIUM 136 mmol/L (136-145); TCO2 30 mmol/L (25-35)
--- NOTE | 2019-12-02 12:48 | PROGRESS NOTE ---
DATE: 12/02/2019 SUBJECTIVE: The patient reports feeling okay. Denies any fever or chills. OBJECTIVE: Vital Signs: Temperature 100.8, heart rate 84, respiratory rate 16, blood pressure 77/38, O2 saturation 91% on room air. General: This is a 74-year-old, chronically ill-appearing, male, lying in bed in no acute distress. Cardiovascular: S1, S2 heard. No murmurs, gallops, or rubs. Regular rate and rhythm. Respiratory: Clear bilaterally to auscultation. No work of breathing or using accessory muscles. Abdomen: Soft, nontender. Bowel sounds present. No organomegaly. Extremities: The patient has both lower extremities with massive lymphedema and foul-smelling, currently covered by dressing. Right decubitus ulcer on the hip with no drainage coming out. Neurological: The patient is alert and oriented x3. Moves all 4 extremities. LABORATORY DATA: White cell count 12.17. ASSESSMENT AND PLAN: 1. Bilateral lower extremity lymphedema and right thigh decubitus ulcer. The patient continues to spike fever. White cell count is basically the same in comparing with yesterday. Patient currently on vancomycin, Azactam, and clindamycin. No need for any surgical debridement at this point. Will continue with the same medical management. 2. Atrial fibrillation, resolved. 3. Anemia of chronic disease. Will continue to monitor. 4. Hypothyroidism. Aware. 5. Disposition. At this point, will continue to monitor this patient closely. cc: Archie Selby MD
[2019-12-02] MEDS ORDERED: NS 1,000 ML IV ONE (15:53)
[2019-12-02] MEDS: NS 1,000 ML IV SCH (16:49)
[2019-12-02] MEDS: THERA M PLUS PO SCH (20:57)
[2019-12-02] MEDS: KLOR-CON PO SCH (20:58)
--- NOTE | 2019-12-02 21:01 | GENERAL SURGERY PROGRESS NOTE ---
DATE: 12/02/2019 SUBJECTIVE: The patient feels about the same. He is sore. He has had several fevers. OBJECTIVE: Currently, temperature 99.5 degrees, T-max 100.8 degrees this morning and 101 yesterday evening.Skin: His right thigh was examined. The wound really looks the same with probably deep partial thickness or full thickness tissue injury. No gross pus. There is slight odor. It is mildly tender. His legs also show evidence of chronic severe bilateral lymphedema. ASSESSMENT AND PLAN: A 74-year-old male with probable right thigh infected wound after deep tissue injury. We are planning debridement in the operating room tomorrow. He understands and agrees to proceed. cc: Maximo Arellano MD
[2019-12-03] MEDS: NS 1,000 ML IV SCH ×2 (01:23→12:15)
[2019-12-03] MEDS: CLINDAMYCIN 600 MG/D5W 600 MG/50 ML IVPB IV SCH ×3 (05:15→20:16)
[2019-12-03] MEDS: AZACTAM 1 GM in NS 50 ML IV SCH ×3 (06:09→22:24)
[2019-12-03] MEDS ORDERED: XYLOCAINE-MPF 2% ONE (07:36)
[2019-12-03] MEDS ORDERED: DIPRIVAN 1% ONE (07:37)
[2019-12-03 08:25] LABS: BASO# 0.01 X1000 (0.0-0.2); BASO% 0.1 % (0.0-0.8); EOS# 0.43 X1000 (0.0-0.7); EOS% 5.2 % (0.0-10.0); HEMATOCRIT 27.4 % (42.0-52.0); HEMOGLOBIN 8.2 g/dL (14.0-18.0); IMM GRAN# 0.03 X1000 (0.0-0.04); IMM GRAN% 0.4 % (0.0-0.5); LYMPH# 1.12 X1000 (1.2-3.4); LYMPH% 13.6 % (20.5-51.1); MCH 23.4 PG (27-31); MCHC 29.9 g/dL (33-37); MCV 78.3 FL (81-99); MONO# 1.07 X1000 (0.11-0.59); MPV 8.3 FL (7.4-10.4); NEUT# 5.55 X1000 (1.4-6.5); NEUT% 67.7 % (42.2-75.2); PLT 240 X1000 (130-400); RDW 17.4 % (11.5-14.5); WBC 8.21 X1000 (4.8-10.8)
[2019-12-03] MEDS: VANCOMYCIN 1,800 MG in NS 250 ML IV SCH (09:07)
[2019-12-03] MEDS ORDERED: HYDROGEN PEROXIDE SOLUTION ONE (09:08)
[2019-12-03] MEDS: VITAMIN D PO SCH ×2 (09:12→12:16)
[2019-12-03] MEDS ORDERED: XYLOCAINE 1% ONE (09:16)
[2019-12-03] MEDS ORDERED: SENSORCAINE 0.25%/EPI 1:200,000 ONE (09:16)
[2019-12-03] MEDS ORDERED: EPHEDRINE ONE ×2 (09:40→11:30)
[2019-12-03] MEDS ORDERED: OFIRMEV 1000 MG/ISOTONIC SOLN 0 MG/0 ML BOTTLE ONE (09:45)
[2019-12-03] MEDS ORDERED: ZOFRAN ONE ×2 (09:45→11:17)
[2019-12-03] MEDS ORDERED: NORCURON ONE (10:56)
[2019-12-03] MEDS ORDERED: LR 500 ML ONE (10:58)
[2019-12-03] MEDS ORDERED: OFIRMEV 1000 MG/ISOTONIC SOLN 1,000 MG/100 ML BOTTLE ONE (11:25)
--- NOTE | 2019-12-03 12:10 | PROGRESS NOTE ---
DATE: 12/03/2019 SUBJECTIVE: Patient reports feeling okay. Fever last night but nothing since last night. He is going to the OR today. OBJECTIVE: Vital Signs: Temperature 98.8 degrees, heart rate 73, respiratory rate 20, blood pressure 99/81, O2 saturation 99% on room air. General Examination: This is a chronically ill- appearing, 74-year-old, male, lying in bed, in no acute distress. Cardiovascular Examination: S1 and S2 heard. No murmurs, gallops, or rubs. Regular rate and rhythm. Respiratory Examination: Clear bilaterally to auscultation. No work of breathing or using accessory muscles. Abdomen: Soft, nontender to palpation. Bowel sounds present. No organomegaly. Extremities: The patient has both lower extremities covered by dressings up to both knees. Right side wound noted with no drainage. Both with foul-smelling odor. Neurological Examination: The patient is alert and oriented x3. Moves 4 extremities. Laboratory Data: White cell count is 8.21, hemoglobin 8.3, hematocrit 27.4, platelets 240,000. No BMP. ASSESSMENT AND PLAN: 1. Bilateral lower extremity lymphedema with right thigh decubitus ulcer. The patient continued to have fever until yesterday at night. The patient is going to be taken to the operating room today for surgical debridement. We will continue with vancomycin, Azactam, and clindamycin. We will continue to monitor. 2. Atrial fibrillation. That condition is resolved. 3. Anemia of chronic disease. Hemoglobin is stable. We will continue to monitor. 4. Hypothyroidism. Aware. 5. Disposition. We will continue to monitor this patient closely. cc: Archie Selby MD
[2019-12-03] MEDS: COLACE PO SCH ×2 (12:16→20:16)
[2019-12-03] MEDS: LASIX PO SCH (12:16)
--- NOTE | 2019-12-03 18:20 | OPERATIVE NOTE ---
PROCEDURE DATE: 12/03/2019 PREOPERATIVE DIAGNOSIS: Right thigh decubitus ulcer. POSTOPERATIVE DIAGNOSES: 1. Right thigh decubitus ulcer. 2. Deep soft tissue injury. PROCEDURE: Excisional debridement of skin and subcutaneous tissue, greater than 20 square centimeters. SURGEON: Maximo Arellano MD. CARPENTER FORM: Chelsi Humphries MS-3. ANESTHESIA: General. ESTIMATED BLOOD LOSS: 100 mL. COMPLICATIONS: None apparent. SPECIMENS: Right thigh skin and subcutaneous tissue. FINDINGS: There was a deep soft tissue injury of the right thigh with necrosis of the skin and underlying subcutaneous fat. This did extend down to the fascia. The underlying muscle is questionably necrosed, but I did not debride any of the muscle today. The area debrided was 16.5 cm long x 11 cm wide x 3 cm deep. There was also some murky seropurulent fluid emanating up out of the muscle bed. TECHNIQUE: The patient was brought to the operating room and placed on his left side after general anesthesia was induced. He was prepped and draped in usual sterile fashion. A 15 blade and cautery was used to sharply excise and debride the wound back to healthier bleeding edges. We irrigated the wound with saline and hemostasis was achieved with direct pressure and cautery. The gluteus muscle was examined. There was some murky fluid emanating up out of the muscle bed. After suctioning this out, I did not see any ongoing purulent drainage. The muscle does appear ischemic, questionably early necrosis, but at this time I did not feel like debridement was required, as we will observe over the next few days to see how this muscle looks with wound care. We then packed the wound with Vashe moistened gauze. He was awakened in stable condition and transferred back to the recovery room without apparent complication. cc: Maximo Arellano MD
[2019-12-03] MEDS: THERA M PLUS PO SCH (20:16)
[2019-12-03] MEDS: KLOR-CON PO SCH (20:16)
[2019-12-04] MEDS: NS 1,000 ML IV SCH ×4 (00:20→22:45)
[2019-12-04] MEDS: CLINDAMYCIN 600 MG/D5W 600 MG/50 ML IVPB IV SCH (05:12)
[2019-12-04] MEDS: HYDROPHOR OINTMENT TOP SCH ×3 (05:38→22:44)
[2019-12-04] MEDS: AZACTAM 1 GM in NS 50 ML IV SCH ×3 (06:03→22:41)
[2019-12-04 08:15] LABS: BASO# 0.01 X1000 (0.0-0.2); BASO% 0.1 % (0.0-0.8); EOS# 0.76 X1000 (0.0-0.7); EOS% 11.1 % (0.0-10.0); HEMATOCRIT 25.7 % (42.0-52.0); HEMOGLOBIN 7.8 g/dL (14.0-18.0); LYMPH# 1.34 X1000 (1.2-3.4); LYMPH% 19.6 % (20.5-51.1); MCH 23.6 PG (27-31); MCHC 30.4 g/dL (33-37); MCV 77.6 FL (81-99); MONO% 10.2 % (1.7-9.3); MPV 8.3 FL (7.4-10.4); NEUT# 4.03 X1000 (1.4-6.5); PLT 260 X1000 (130-400); RBC 3.31 XMIL (4.7-6.1); RDW 17.2 % (11.5-14.5); WBC 6.84 X1000 (4.8-10.8)
[2019-12-04] MEDS ORDERED: VANCOMYCIN 1,800 MG in NS 250 ML IV SCH (10:00)
[2019-12-04] MEDS: LASIX PO SCH (11:49)
[2019-12-04] MEDS: COLACE PO SCH ×2 (11:49→22:41)
--- NOTE | 2019-12-04 14:05 | PROGRESS NOTE ---
DATE: 12/04/2019 SUBJECTIVE: Patient reports feeling okay and not having any more episodes of fever. OBJECTIVE: Vital Signs: Temperature 98.1 degrees, heart rate 82, respiratory 19, blood pressure 92/57, O2 saturation 97% on room air. General Examination: This is a 74-year-old male, lying in bed in no acute distress. Cardiovascular exam: S1, S2 heard. No murmurs, gallops, or rubs. Regular rate and rhythm. Respiratory exam: Clear bilaterally to auscultation. No work of breathing or using accessory muscles. Abdomen: Soft, nontender to palpation. Bowel sounds present. No organomegaly. Extremities: The patient has both lower extremities covered by dressing up to both knees. Right thigh wound noted covered by dressing. Neurological exam: Patient alert and oriented x3. Moves 4 extremities. LABORATORY DATA: Reviewed. ASSESSMENT AND PLAN: 1. Bilateral lower extremity lymphedema with the right thigh decubitus ulcer status post excisional debridement. The patient is reporting feeling fine. He apparently tolerated surgery very well. So, at this point, I think we will continue with current antibiotic management. One culture returned positive for Klebsiella pneumonia and Proteus mirabilis sensitive to Levaquin. At this point, we are going to discontinue vancomycin and clindamycin. We will continue with Azactam intravenously. 2. Atrial fibrillation, condition resolved. 3. Anemia of chronic disease. Hemoglobin is stable. We will continue to monitor. 4. Hypothyroidism. Aware. Will continue home doses of levothyroxine. 5. Disposition: We will continue to monitor this patient closely. Follow lead from General Surgery. cc: Archie Selby MD
[2019-12-04] MEDS: THERA M PLUS PO SCH (22:42)
[2019-12-04] MEDS: KLOR-CON PO SCH (22:42)
[2019-12-04] MEDS: NORCO-7.5 PO PRN (22:44)
[2019-12-05] MEDS: NS 1,000 ML IV SCH ×3 (04:22→21:11)
[2019-12-05] MEDS: AZACTAM 1 GM in NS 50 ML IV SCH ×3 (05:25→21:29)
[2019-12-05 08:32] LABS: BASO# 0.01 X1000 (0.0-0.2); BASO% 0.1 % (0.0-0.8); EOS# 0.81 X1000 (0.0-0.7); EOS% 10.8 % (0.0-10.0); HEMATOCRIT 26.8 % (42.0-52.0); HEMOGLOBIN 7.8 g/dL (14.0-18.0); IMM GRAN# 0.04 X1000 (0.0-0.04); IMM GRAN% 0.5 % (0.0-0.5); LYMPH# 1.55 X1000 (1.2-3.4); LYMPH% 20.6 % (20.5-51.1); MCH 22.9 PG (27-31); MCHC 29.1 g/dL (33-37); MCV 78.6 FL (81-99); MONO# 0.58 X1000 (0.11-0.59); MONO% 7.7 % (1.7-9.3); MPV 8.4 FL (7.4-10.4); NEUT# 4.52 X1000 (1.4-6.5); NEUT% 60.3 % (42.2-75.2); PLT 286 X1000 (130-400); RBC 3.41 XMIL (4.7-6.1); RDW 17.6 % (11.5-14.5); WBC 7.51 X1000 (4.8-10.8)
--- NOTE | 2019-12-05 09:05 | PROGRESS NOTE ---
DATE: 12/05/2019 SUBJECTIVE: The patient reports feeling fine. No more episodes of fever. OBJECTIVE: Vital Signs: Temperature 97.4 degrees, heart rate 64, respiratory rate 19, blood pressure 93/56, and O2 saturation 98% on room air. General: On examination, this is a 74-year- old male, lying in bed, in no acute distress. Cardiovascular: S1 and S2 heard. No murmurs, gallops, or rubs. Regular rate and rhythm. Respiratory: Clear bilaterally to auscultation. No work of breathing. Not using accessory muscles. Abdomen: Soft, nontender to palpation. Bowel sounds present. No organomegaly. Extremities: The patient has both lower extremities covered by dressing. Also, right thigh wound covered by dressing as well. Neurological: Patient alert and oriented x3. Moves 4 extremities. LABORATORY DATA: Pending at the time of my dictation. ASSESSMENT AND PLAN: 1. Bilateral lower extremity lymphedema with right thigh decubitus ulcer, status post excisional debridement. Clinically, this patient is doing okay. Cultures, as we mentioned yesterday, from wound showed Klebsiella pneumoniae and Proteus mirabilis. Patient is on Azactam intravenously now. We will continue with the same management. 2. Atrial fibrillation. That condition is resolved. 3. Anemia of chronic disease. We do not have the results from hemoglobin, but so far it has been stable. 4. Hypothyroidism. We will continue home doses of levothyroxine. 5. Disposition. From medical standpoint, I will keep this patient over the weekend with intravenous antibiotics, and on Sunday we will try to send this patient to rehab facility. cc: Archie Selby MD
[2019-12-05] MEDS: HYDROPHOR OINTMENT TOP SCH (10:47)
[2019-12-05] MEDS: COLACE PO SCH ×2 (10:47→21:12)
[2019-12-05] MEDS: LASIX PO SCH (10:47)
--- NOTE | 2019-12-05 17:17 | GENERAL SURGERY PROGRESS NOTE ---
DATE: 12/05/2019 SUBJECTIVE: The patient is doing well. No new complaints. OBJECTIVE: Vital Signs: He is afebrile. Vital signs are stable. General: He is awake, alert, oriented times 3 and in no acute distress. Extremities: The right thigh wound is examined. There is no gross pus. The wound appears to be healing. There is quite a bit of serosanguineous drainage. CULTURE DATA: The wound is positive for Proteus mirabilis and Klebsiella pneumoniae sensitive to Zosyn, Bactrim, Levaquin, and Ancef. ASSESSMENT AND PLAN: A 74-year-old male with right thigh decubitus infected ulcer status post debridement. The wound is making good improvement. We will plan to switch to a wound VAC for further wound care. The patient is on aztreonam and I think he could be switched to Levaquin prior to discharge. We will plan to reexamine the wound on Sunday and I believe the patient is planning to go to rehab. cc: Maximo Arellano MD
[2019-12-05] MEDS: KLOR-CON PO SCH (21:13)
[2019-12-05] MEDS: THERA M PLUS PO SCH (21:13)
[2019-12-06] MEDS: NS 1,000 ML IV SCH ×3 (04:35→22:23)
[2019-12-06] MEDS: AZACTAM 1 GM in NS 50 ML IV SCH (04:35)
[2019-12-06 07:11] LABS: BASO# 0.02 X1000 (0.0-0.2); BASO% 0.2 % (0.0-0.8); EOS# 0.82 X1000 (0.0-0.7); EOS% 8.3 % (0.0-10.0); HEMATOCRIT 25.5 % (42.0-52.0); HEMOGLOBIN 7.7 g/dL (14.0-18.0); IMM GRAN# 0.06 X1000 (0.0-0.04); IMM GRAN% 0.6 % (0.0-0.5); LYMPH# 1.92 X1000 (1.2-3.4); LYMPH% 19.4 % (20.5-51.1); MCH 23.3 PG (27-31); MCHC 30.2 g/dL (33-37); MONO# 0.59 X1000 (0.11-0.59); MPV 8.4 FL (7.4-10.4); NEUT% 65.5 % (42.2-75.2); PLT 344 X1000 (130-400); RBC 3.31 XMIL (4.7-6.1); RDW 17.4 % (11.5-14.5); WBC 9.91 X1000 (4.8-10.8)
--- NOTE | 2019-12-06 10:26 | PROGRESS NOTE ---
DATE: 12/06/2019 SUBJECTIVE: The patient reports feeling fine. Denies any other problems. OBJECTIVE: Vital Signs: Temperature 98.1 degrees, heart rate 67, respiratory 17, blood pressure 106/64, O2 saturation 94% on room air. General examination: This is a 74-year-old chronically ill-appearing, -[place] male, lying in bed, in no acute distress. Cardiovascular exam: S1, S2 heard. No murmurs, gallops, or rubs. Regular rate and rhythm. Respiratory exam: Clear bilaterally to auscultation. No work of breathing or using accessory muscles. Abdomen: Soft, nontender to palpation. Bowel sounds present. No organomegaly. Extremities: No clubbing, cyanosis, or edema. Peripheral pulses present in both legs. Patient has both lower extremities covered by dressing. Right thigh wound has a wound VAC placed. Neurological exam: The patient is alert and oriented x3. Moves 4 extremities. LABORATORY DATA: White count 9.91, hemoglobin 7.7, hematocrit 25.5, platelets 344,000, with no BMP. ASSESSMENT AND PLAN: 1. Bilateral lower extremity lymphedema with right thigh decubitus ulcer status post excisional debridement. Clinically, patient is doing okay. Wound VAC has been placed yesterday. Wound culture showed Klebsiella and Proteus, so at this point I will switch antibiotics to Levaquin 750 mg IV q.24 hours. 2. Atrial fibrillation, resolved. 3. Anemia of chronic disease. Hemoglobin is 7.7. We will continue to monitor. If he reached to 7 hemoglobin, we need to transfuse. 4. Hypothyroidism. We will continue with home dose of levothyroxine. 5. Disposition. At this point, we will keep this patient over the weekend with wound care and also IV antibiotics. On Sunday, we will send this patient to rehabilitation facility. cc: Archie Selby MD
[2019-12-06] MEDS: COLACE PO SCH ×2 (11:14→22:23)
[2019-12-06] MEDS: LASIX PO SCH (11:14)
[2019-12-06] MEDS: LEVAQUIN 750 MG/D5W 750 MG/150 ML IVPB IV SCH (11:23)
[2019-12-06] MEDS: KLOR-CON PO SCH (22:23)
[2019-12-06] MEDS: THERA M PLUS PO SCH (22:24)
[2019-12-07] MEDS: NS 1,000 ML IV SCH ×2 (04:27→11:17)
[2019-12-07 08:04] LABS: BASO# 0.03 X1000 (0.0-0.2); BASO% 0.3 % (0.0-0.8); EOS# 0.66 X1000 (0.0-0.7); EOS% 6.6 % (0.0-10.0); HEMATOCRIT 25.9 % (42.0-52.0); IMM GRAN# 0.06 X1000 (0.0-0.04); IMM GRAN% 0.6 % (0.0-0.5); MCH 23.6 PG (27-31); MCHC 30.9 g/dL (33-37); MCV 76.4 FL (81-99); MONO# 0.72 X1000 (0.11-0.59); MONO% 7.2 % (1.7-9.3); MPV 8.4 FL (7.4-10.4); NEUT# 6.94 X1000 (1.4-6.5); NEUT% 69.3 % (42.2-75.2); PLT 358 X1000 (130-400); RBC 3.39 XMIL (4.7-6.1); RDW 17.5 % (11.5-14.5); WBC 10.01 X1000 (4.8-10.8)
[2019-12-07] MEDS: COLACE PO SCH (09:30)
[2019-12-07] MEDS: LEVAQUIN 750 MG/D5W 750 MG/150 ML IVPB IV SCH (09:30)
[2019-12-07] MEDS: LASIX PO SCH (09:30)
[2019-12-07] MEDS ORDERED: LACTULOSE PO PRN (09:47)
--- NOTE | 2019-12-07 11:08 | PROGRESS NOTE ---
DATE: 12/07/2019 SUBJECTIVE: Patient reports feeling okay. Denies any other issues. OBJECTIVE: Vital Signs: Temperature 97.8 degrees, heart rate 72, respiratory rate 24, blood pressure 113/62, O2 saturation 96% on room air. General Examination: This is a 74-year-old, chronically ill-appearing, -[place] male, lying in bed, in no acute distress. Cardiovascular Examination: S1 and S2 heard. No murmurs, gallops, or rubs. Respiratory Examination: Clear bilaterally to auscultation. No work of breathing. Abdomen: Soft, nontender to palpation. Bowel sounds present. No organomegaly. Extremities: Right thigh wound has a wound VAC placed. Both lower extremities are covered with a dressing. Neurological Examination: The patient is alert and oriented x3. Laboratory Data: Reviewed. Normal white cell count. ASSESSMENT AND PLAN: 1. Bilateral lower extremity lymphedema with right thigh decubitus ulcer, status post excisional debridement. Wound VAC has been placed 2 days ago. Wound culture showed Klebsiella and Proteus. That is why this patient is on Levaquin. Actually, today is the second day of treatment. We will continue with the same management. 2. Atrial fibrillation. That condition is completely resolved. 3. Anemia of chronic disease. Hemoglobin today is 8.0. We will continue to monitor. 4. Hypothyroidism. We will continue home dose of levothyroxine. 5. Disposition. I think, at this point, we will continue with the current management. We will try to send this patient to a rehab facility once we have a bed for him. cc: Archie Selby MD
[2019-12-08] MEDS: NS 1,000 ML IV SCH ×4 (00:45→23:21)
[2019-12-08] MEDS: KLOR-CON PO SCH ×2 (00:46→21:20)
[2019-12-08] MEDS: COLACE PO SCH ×3 (00:46→21:21)
[2019-12-08] MEDS: THERA M PLUS PO SCH ×2 (00:47→21:21)
[2019-12-08] MEDS: LASIX PO SCH (08:51)
[2019-12-08] MEDS: LEVAQUIN 750 MG/D5W 750 MG/150 ML IVPB IV SCH (08:51)
[2019-12-08 08:54] LABS: BASO# 0.02 X1000 (0.0-0.2); BASO% 0.2 % (0.0-0.8); EOS# 0.48 X1000 (0.0-0.7); EOS% 4.3 % (0.0-10.0); HEMATOCRIT 27.1 % (42.0-52.0); HEMOGLOBIN 8.3 g/dL (14.0-18.0); IMM GRAN# 0.11 X1000 (0.0-0.04); LYMPH# 1.52 X1000 (1.2-3.4); LYMPH% 13.8 % (20.5-51.1); MCH 23.2 PG (27-31); MCHC 30.6 g/dL (33-37); MCV 75.7 FL (81-99); MONO# 0.84 X1000 (0.11-0.59); MONO% 7.6 % (1.7-9.3); MPV 8.5 FL (7.4-10.4); NEUT# 8.07 X1000 (1.4-6.5); NEUT% 73.1 % (42.2-75.2); PLT 429 X1000 (130-400); RBC 3.58 XMIL (4.7-6.1); RDW 17.3 % (11.5-14.5); WBC 11.04 X1000 (4.8-10.8)
--- NOTE | 2019-12-08 12:03 | PROGRESS NOTE ---
DATE: 12/08/2019 SUBJECTIVE: The patient reports feeling okay. Denies any problems. OBJECTIVE: Vital Signs: Temperature 98.1 degrees, heart rate 82, respiratory rate 18, blood pressure 119/77, O2 saturation 95% on room air. General: This is a 74-year-old, chronically ill- looking, male, lying in bed in no acute distress. Cardiovascular: S1, S2 heard. No murmurs, gallops, or rubs. Regular rate and rhythm. Respiratory: Clear bilaterally to auscultation. No work of breathing or using accessory muscles. Abdomen: Soft. Nontender to palpation. Bowel sounds present. No organomegaly. Extremities: Right thigh wound has a wound VAC in place. Both lower extremities are covered by dressing. Neurological: The patient is alert and oriented x3. Moves all 4 extremities. LABORATORY DATA: Reviewed. ASSESSMENT AND PLAN: 1. Bilateral lower extremity lymphedema with right thigh decubitus ulcer, status post excisional debridement. Clinically, this patient is doing fine since 3 days ago. Wound vac has been replaced today. For infection secondary to Klebsiella and Proteus, the patient is on Levaquin. Will continue with the same management. 2. Atrial fibrillation, resolved. 3. Anemia of chronic disease. Hemoglobin is stable. Will continue to monitor. 4. Hypothyroidism. Will continue home doses of levothyroxine. 5. Disposition. At this point, the patient is medically stable and waiting for a rehab bed. cc: Archie Selby MD MTDD
--- NOTE | 2019-12-08 14:22 | GENERAL SURGERY PROGRESS NOTE ---
DATE: 12/08/2019 Discussed the case with Haley Post, the Wound Care nurse. She removed the VAC. It seems to be healing up well. From a surgical point of view, will keep the VAC in place and continue current treatment. Hopefully, he can be transferred to a rehab facility soon. cc: Adelfo Parks MD
[2019-12-09] MEDS: NS 1,000 ML IV SCH ×2 (06:25→15:57)
[2019-12-09] MEDS: LEVAQUIN 750 MG/D5W 750 MG/150 ML IVPB IV SCH (08:32)
[2019-12-09] MEDS: COLACE PO SCH ×2 (08:32→20:11)
[2019-12-09] MEDS: LASIX PO SCH (08:33)
--- NOTE | 2019-12-09 10:40 | PROGRESS NOTE ---
DATE: 12/09/2019 SUBJECTIVE: The patient reports feeling okay. Denies any fever or chills. OBJECTIVE: Vital Signs: Temperature 98 degrees, heart rate 72, respiratory rate 20, blood pressure 112/62, O2 saturation 96% on room air. General: This is a 74-year-old, chronically ill- appearing, male, lying in bed in no acute distress. Cardiovascular: S1, S2 heard. No murmurs, gallops, or rubs. Regular rate and rhythm. Respiratory: Clear bilaterally to auscultation. No work of breathing or using accessory muscles. Abdomen: Soft, nontender to palpation. Bowel sounds present. No organomegaly. Extremities: His right thigh wound with a wound VAC in place. Both lower extremities are covered by dressing. Neurological: The patient is alert and oriented x3. Moves all 4 extremities. LABORATORY DATA: Reviewed. ASSESSMENT AND PLAN: 1. Bilateral lower extremity lymphedema with right thigh decubitus ulcer, status post excisional debridement. Clinically, this patient continues to improve. He has been placed on the wound VAC. He has an infection secondary to Klebsiella and Proteus, so the patient is on Levaquin. Will continue with these antibiotics to complete 14 days total. 2. Atrial fibrillation. That condition is completely resolved. 3. Anemia of chronic disease. Hemoglobin is stable. Will continue to monitor. 4. Hypothyroidism. Will continue with home doses of levothyroxine. 5. Disposition. At this point, the patient is medically stable. We are waiting for a rehab bed. The patient belongs to [facility], so it might take a few more days to get a bed for him. cc: Archie Selby MD
--- NOTE | 2019-12-09 12:59 | GENERAL SURGERY PROGRESS NOTE ---
DATE: 12/09/2019 Wound VAC seems to be doing okay right now, seems to have a seal. At this point, we are waiting for him to be able to go to a rehab facility. Once this is arranged, from a surgical point of view, he can go. cc: Adelfo Parks MD
[2019-12-09] MEDS: KLOR-CON PO SCH (20:11)
[2019-12-09] MEDS: THERA M PLUS PO SCH (20:11)
[2019-12-10] MEDS: NS 1,000 ML IV SCH ×2 (00:15→08:32)
[2019-12-10] MEDS: LEVAQUIN 750 MG/D5W 750 MG/150 ML IVPB IV SCH (08:32)
[2019-12-10] MEDS: COLACE PO SCH ×2 (08:33→08:37)
[2019-12-10] MEDS: VITAMIN D PO SCH (08:33)
[2019-12-10] MEDS: LASIX PO SCH (08:33)
[2019-12-10 11:31] LABS: CALCIUM 7.2 mg/dL (8.8-10.2); CREATININE 1.7 mg/dL (0.7-1.2); POTASSIUM 3.1 mmol/L (3.5-5.1)
[2019-12-10] MEDS: KLOR-CON PO SCH ×2 (12:39→16:20)
--- NOTE | 2019-12-10 12:51 | DISCHARGE SUMMARY ---
ADMISSION DATE: 11/27/2019 DISCHARGE DATE: 12/10/2019 DISCHARGE DISPOSITION: To the [facility]. DISCHARGE CONDITION: Hemodynamically stable. His heart rate has normal sinus rhythm. He has a wound VAC in place. He will be discharged on antibiotics for right thigh wound infection. DISCHARGE DIAGNOSES: 1. New onset atrial fibrillation with rapid ventricular response. 2. Generalized weakness. 3. Recurrent falls. 4. Bilateral lower extremity acute on chronic lymphedema with multiple wounds. 5. Mild acute rhabdomyolysis. 6. Chronic anemia. 7. Hypothyroidism. 8. Right thigh pressure ulcer infection with Klebsiella pneumoniae and Proteus mirabilis. 9. Hypokalemia. OTHER DIAGNOSES: 1. History of hypothyroidism. 2. History of anemia of chronic disease. 3. History of chronic bilateral lower extremity lymphedema. 4. 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 DISCHARGE MEDICATIONS: 1. Vitamin C, ascorbic acid, multivitamin tablet 500 mg at nighttime. 2. Ferrous gluconate 324 mg daily. 3. Furosemide 40 mg in the morning time. 4. Potassium chloride 10 mEq in the evening time. 5. Vitamin D3 at 50,000 units every 7 days. 6. Docusate 100 mg b.i.d. 7. Lactulose 30 mL b.i.d. as needed for constipation. 8. Levaquin 500 mg daily for 15 days for right thigh wound infection. 9. Acetaminophen 650 mg every 6 hours as needed for fever or pain. PHYSICAL EXAMINATION: Vital Signs: At time of discharge, temperature 97.9 degrees, pulse 70, respiratory rate 30, blood pressure 132/70, saturating 96% room air. General: On physical examination, the patient was not in acute distress. HEENT: Oral cavity is moist. Lungs: Air entry bilaterally equal. No wheeze, rhonchi, rales. Cardiac: S1 and S2 are normal, regular. No murmur, rub, or gallop. Normal sinus rhythm on bedside telemetry. Abdomen: Soft, nontender. Extremities/Neurologic: He has bilateral lower extremity lymphedema extending up to thigh level. The lymphedema was bandaged. He has a right lateral thigh wound with wound VAC in place. He was alert. He was able to move both lower extremities and left upper extremity. He had impaired movement of right shoulder and elbow joint, which was chronic. CURRENT LABORATORIES: WBC is 11,000, hemoglobin 8.3, platelet 429,000. His sodium is 141, potassium of 3.1 which is currently being repleted. BUN 13, creatinine 1.7. Microbiology, wound culture has a Klebsiella pneumoniae and Proteus mirabilis, both of which were sensitive to Levaquin. SIGNIFICANT IMAGING DURING HOSPITAL ADMISSION AND DISCHARGE: Chest x-ray on November 27, no pulmonary edema. Hip and pelvis x-ray did not have any acute bony injury. Electrocardiogram on November 27 had atrial fibrillation with premature ventricular contraction or aberrantly conducted complexes. On November 28, it had sinus rhythm with fusion complexes, nonspecific ST abnormality. Echocardiogram on November 28 had ejection fraction of 70%. No pericardial effusion. PROCEDURES DURING HOSPITAL ADMISSION: On 12/03/2019, the patient underwent excisional debridement of the skin and subcutaneous tissue of 20 sq cm area on the right thigh decubitus ulcer for deep soft tissue injury. PATHOLOGY DURING HOSPITAL ADMISSION: The wound debridement pathology had shown marked ulceration, necrosis, edema, and acute and chronic inflammation. HOSPITAL COURSE SUMMARY: Mr. Coelho is a 74-year-old man with past medical history of chronic lymphedema, who came in with gradually progressive generalized weakness, especially bilateral lower extremity, recurrent falls. Apparently, patient had another fall 2 days prior to current presentation at his house where the patient lived independently, and the patient remained on the floor for almost 2 days until he was found by some jainism members. The patient did not hit his head. He did not have loss of consciousness. He was just experiencing right hip pain. Because of the fall, he had a large area of breakdown on his right hip, which he and his family members were keeping clean and dressed. Later on, his generalized weakness and lower extremity weakness started getting worse, and so they decided to bring him to the hospital. In the emergency room evaluation, he was found to have temperature of 99 degrees, pulse of 77 blood pressure of 108/68, and he was saturating 98% on room air. His initial labs were suggestive of hemoglobin of 10.1, platelet of 279,000, WBC of 7.5. His kidney function was normal, and he had a creatine kinase of 613, so the hospitalist team was consulted for further management. He was diagnosed with acute rhabdomyolysis, bilateral lower extremity acute on chronic lymphedema, and right thigh lateral thigh wound infection, and was admitted for further management. He also was noticed to have atrial fibrillation at the time of presentation. While inside the hospital, he also developed episodes of fever as high as 102.8, which was thought to be related to right lower extremity lateral thigh wound. He was treated with initially fluid resuscitation, intravenous antibiotics for sepsis from right lateral thigh wound infection, which grew Klebsiella and Proteus, and his antibiotics were later narrowed down to oral Levaquin. He also underwent surgical debridement of his wound on 12/03/2019 and wound VAC was placed. Currently, his wound is healing well on the wound VAC and he has been on oral antibiotics. Regarding his atrial fibrillation, he required some intravenous rate control medication, following which the next day his heart rate was better controlled and he did not have any episodes of atrial fibrillation. In fact, the EKG did show normal sinus rhythm with premature atrial contraction fusion complexes, so it was decided not to start him on any correction rate control anticoagulation management treatment. Considering generalized weakness, physical therapy was consulted, and he was recommended to go to the rehab, so the patient will be transferred to rehab. The patient should have a followup with outpatient provider and should get local wound care. TIME SPENT: There was 35 minutes spent discharging the patient. Plan of care was extensively discussed with him. All of his questions were answered. cc: Osiel Topete MD MTDD
[2019-12-10 15:06] VITALS: BP 134/79
[2019-12-10] MEDS: NORCO-7.5 PO PRN (16:20)
[2019-12-11] MEDS ORDERED: LEVAQUIN PO SCH (09:00)
== END 2019-12-10 18:32 | DRG 853 ==
LOC: ED 11:05 → SUATTDRO 21:41 → 3N 21:41
PROVIDERS: ATTEND Internal Medicine